=== PATIENT | male | born 1995 | race Two or more races ===

== ENCOUNTER 2019-04-26 18:11 | Emergency (ER) | payer SELFPAY ==
[~2019-04-26] VITALS: Ht 175.3 cm; Wt 54.5 kg
[2019-04-26 20:49] VITALS: BP 117/70
== END 2019-04-26 21:10 | disposition home or self-care (01) ==
LOC: EMS 18:11
DX: S52.601A Unspecified fracture of lower end of right ulna, initial encounter for closed fracture (principal); V13.4XXA Pedal cycle driver injured in collision with car, pick-up truck or van in traffic accident, initial encounter; Y93.55 Activity, bike riding; Y92.89 Other specified places as the place of occurrence of the external cause; Y99.8 Other external cause status